=== PATIENT | female | born 1980 | race Two or more races ===

== ENCOUNTER 2020-11-30 17:17 | Emergency (ER) | payer MEDICAID, OTHER ==
[~2020-11-30] VITALS: Ht 154.9 cm; Wt 113.4 kg
[2020-11-30 17:48] LABS: Urine Amorphous Crystal MOD /hpf (None Seen); Urine Bacteria NONE SEEN /hpf (None Seen); Urine Blood Negative /uL (Negative); Urine Mucus FEW (None Seen); Urine Specific Gravity 1.026 (1.001-1.035); Urine WBC 4 /hpf (0 - 5); Urine WBC Clumps PRESENT /hpf (None Seen)
[2020-11-30] MEDS ORDERED: cefTRIAXone SOD 1,000 MG VL IM ONE (18:45)
[2020-11-30] MEDS ORDERED: KETOROLAC TROMETH 60MG/2ML VIAL IM ONE (18:45)
[2020-11-30] MEDS ORDERED: AZITHROMYCIN 250 MG TAB PO ONE (18:45)
[2020-11-30 19:14] VITALS: BP 130/93
== END 2020-11-30 20:30 | disposition home or self-care (01) ==
LOC: ER 17:17
DX: N39.0 Urinary tract infection, site not specified (principal); Z20.2 Contact with and (suspected) exposure to infections with a predominantly sexual mode of transmission
CPT/HCPCS: 81001; 81025; 96372; 99284; J0696; J1885